=== PATIENT | male | born 1970 | race Caucasian/White ===

== ENCOUNTER 2018-07-23 13:02 | Observation (INO) | payer OTHER ==
[2018-07-23] MEDS ORDERED: SODIUM CHLORIDE 0.9% 1,000 ML IV STA (13:48)
[2018-07-23] MEDS ORDERED: SODIUM CHLORIDE 0.9% 500 ML IV STA (13:48)
[2018-07-23] MEDS ORDERED: DEXAMETHASONE SOD PHOSPHATE 10 MG/ML 1 ML VIAL IV STA ×2 (13:49→17:49)
--- NOTE | 2018-07-23 14:01 | ED ---
General Adult HPI - General Chief complaint: ENT Stated complaint: [facility] Time Seen by Provider: 07/23/18 13:35 Source: patient Mode of arrival: ambulatory Limitations: no limitations - History of Present Illness Initial comments: 47 years old male comes in with the neck trauma, him a he had the neck show during exercises now is complaining about difficulty swallowing he feels back swelling in the anterior neck, denies any shortness of breath no chest pain no abdominal pain no frequency urgency dysuria no symptoms of TIA or CVA no head injury at this point - Related Data Home Medications Medication Instructions Recorded Confirmed No Known Home Medications 07/23/18 07/23/18 Allergies Allergy/AdvReac Type Severity Reaction Status Date / Time No Known Allergies Allergy Verified 07/23/18 13:17 Review of Systems ROS Statement: Those systems with pertinent positive or pertinent negative responses have been documented in the HPI. ROS Other: All systems not noted in ROS Statement are negative. Past Medical History Past Medical History: No Reported History History of Any Multi-Drug Resistant Organisms: None Reported Past Surgical History: Orthopedic Surgery Past Psychological History: No Psychological Hx Reported Smoking Status: Never smoker Past Alcohol Use History: Occasional Past Drug Use History: None Reported General Exam Limitations: no limitations Course Vital Signs 07/23/18 07/23/18 13:05 15:55 Temperature 97.6 F Pulse Rate 87 96 Respiratory 20 18 Rate Blood Pressure 146/95 139/100 O2 Sat by Pulse 98 96 Oximetry 10 days I examine that 1350, noticed mild swelling over the anterior neck inferior to the thyroid cartilage monocytes tenderness emphysema noticed oropharynx looks normal and concerned about trauma to the trachea. I discussed with the Dr. Polo radiologist, he recommended CT soft tissue neck with the IV contrast be better study to evaluate the neck injury. Patient be given Decadron 10 mg IV to reduce the swelling , stat CT neck soft tissue with the IV contrast is ordered, RN is advised not to wait for the creatinine because patient is healthy he denies any kidney disease history. CT neck soft tissue is reviewed findings are discussed with the patient noticed some defect in the cortex of the hyoid bone Dr. Ragsdale is a paged at 1500, waiting to hear back from him. Josue was contacted around 1700 explained the patient she agreed to admit the patient under her service and advised to consult pulmonary medicine. After that Dr. Ordonez calls he agreed to see the patient in consult tomorrow - Reevaluation(s) Reevaluation #1: Plan reassessment CBC, CMP, chest x-ray, INR are unremarkable CK is 429 troponin is normal. KG is a normal sinus ventricular rate is 83 WA interval is 142 QRS duration is 80 QT/QTC 370/39 review of this EKG reveals T-wave inversion in lead [address] elevation or ST depression noticed in the other leads. 07/23/18 14:56 Medical Decision Making - Lab Data Result diagrams: 07/23/18 14:00 07/23/18 14:00 Lab Results 07/23/18 07/23/18 07/23/18 Range/Units 14:00 14:00 14:00 WBC 7.5 (3.8-10.6) k/uL RBC 5.37 (4.30-5.90) m/uL Hgb 16.3 (13.0-17.5) gm/dL Hct 47.9 (39.0-53.0) % MCV 89.3 (80.0-100.0) fL MCH 30.3 (25.0-35.0) pg MCHC 34.0 (31.0-37.0) g/dL RDW 12.9 (11.5-15.5) % Plt Count 269 (150-450) k/uL Neutrophils % 65 % Lymphocytes % 26 % Monocytes % 6 % Eosinophils % 1 % Basophils % 1 % Neutrophils # 4.9 (1.3-7.7) k/uL Lymphocytes # 2.0 (1.0-4.8) k/uL Monocytes # 0.4 (0-1.0) k/uL Eosinophils # 0.1 (0-0.7) k/uL Basophils # 0.1 (0-0.2) k/uL PT (9.0-12.0) sec INR (<1.2) APTT (22.0-30.0) sec Sodium 142 (137-145) mmol/L Potassium 4.3 (3.5-5.1) mmol/L Chloride 106 (98-107) mmol/L Carbon Dioxide 23 (22-30) mmol/L Anion Gap 13 mmol/L BUN 12 (9-20) mg/dL Creatinine 0.90 (0.66-1.25) mg/dL Est GFR (CKD-EPI)AfAm >90 (>60 ml/min/1.73 sqM) Est GFR (CKD-EPI)NonAf >90 (>60 ml/min/1.73 sqM) Glucose 101 H (74-99) mg/dL Calcium 10.1 (8.4-10.2) mg/dL Total Bilirubin 0.6 (0.2-1.3) mg/dL AST 53 (17-59) U/L ALT 101 H (21-72) U/L Alkaline Phosphatase 77 (38-126) U/L Total Creatine Kinase 429 H (55-170) U/L CK-MB (CK-2) 1.7 (0.0-2.4) ng/mL CK-MB (CK-2) Rel Index 0.4 Troponin I <0.012 (0.000-0.034) ng/mL Total Protein 8.3 H (6.3-8.2) g/dL Albumin 5.2 H (3.5-5.0) g/dL 07/23/18 Range/Units 14:00 WBC (3.8-10.6) k/uL RBC (4.30-5.90) m/uL Hgb (13.0-17.5) gm/dL Hct (39.0-53.0) % MCV (80.0-100.0) fL MCH (25.0-35.0) pg MCHC (31.0-37.0) g/dL RDW (11.5-15.5) % Plt Count (150-450) k/uL Neutrophils % % Lymphocytes % % Monocytes % % Eosinophils % % Basophils % % Neutrophils # (1.3-7.7) k/uL Lymphocytes # (1.0-4.8) k/uL Monocytes # (0-1.0) k/uL Eosinophils # (0-0.7) k/uL Basophils # (0-0.2) k/uL PT 10.2 (9.0-12.0) sec INR 1.0 (<1.2) APTT 23.5 (22.0-30.0) sec Sodium (137-145) mmol/L Potassium (3.5-5.1) mmol/L Chloride (98-107) mmol/L Carbon Dioxide (22-30) mmol/L Anion Gap mmol/L BUN (9-20) mg/dL Creatinine (0.66-1.25) mg/dL Est GFR (CKD-EPI)AfAm (>60 ml/min/1.73 sqM) Est GFR (CKD-EPI)NonAf (>60 ml/min/1.73 sqM) Glucose (74-99) mg/dL Calcium (8.4-10.2) mg/dL Total Bilirubin (0.2-1.3) mg/dL AST (17-59) U/L ALT (21-72) U/L Alkaline Phosphatase (38-126) U/L Total Creatine Kinase (55-170) U/L CK-MB (CK-2) (0.0-2.4) ng/mL CK-MB (CK-2) Rel Index Troponin I (0.000-0.034) ng/mL Total Protein (6.3-8.2) g/dL Albumin (3.5-5.0) g/dL Disposition Clinical Impression: Neck pain, Dysphagia Disposition: ADMITTED IP TO THIS [facility] Referrals: Nonstaff,Physician [Primary Care Provider] - 1-2 days
--- NOTE | 2018-07-23 14:14 | XR ---
EXAMINATION TYPE: XR chest 2V DATE OF EXAM: 07/23/2018 COMPARISON: NONE HISTORY: Difficulty breathing TECHNIQUE: Frontal and lateral views of the chest are obtained. FINDINGS: There is no focal air space opacity, pleural effusion, or pneumothorax seen. The cardiac silhouette size is within normal limits. The osseous structures are intact. IMPRESSION: No acute cardiopulmonary process.
[2018-07-23 14:20] LABS: Basophils # (A) 0.1 k/uL (0-0.2); Basophils % (A) 1 %; Eosinophils # (A) 0.1 k/uL (0-0.7); Eosinophils % (A) 1 %; HCT 47.9 % (39.0-53.0); HGB 16.3 gm/dL (13.0-17.5); Lymphocytes % (A) 26 %; MCH 30.3 pg (25.0-35.0); MCV 89.3 fL (80.0-100.0); Mean Platelet Volume 7.3; Monocytes # (A) 0.4 k/uL (0-1.0); Monocytes % (A) 6 %; Neutrophils # (A) 4.9 k/uL (1.3-7.7); Neutrophils % (A) 65 %; Platelet Count 269 k/uL (150-450); RBC 5.37 m/uL (4.30-5.90); RDW 12.9 % (11.5-15.5); WBC 7.5 k/uL (3.8-10.6)
[2018-07-23 14:25] LABS: Partial Thromboplastin Time 23.5 sec (22.0-30.0); Prothrombin Time 10.2 sec (9.0-12.0)
[2018-07-23 14:30] LABS: ALT 101 U/L (21-72); AST 53 U/L (17-59); Albumin 5.2 g/dL (3.5-5.0); Alkaline Phosphatase 77 U/L (38-126); Anion Gap 13 mmol/L; Blood Urea Nitrogen 12 mg/dL (9-20); Calcium 10.1 mg/dL (8.4-10.2); Carbon Dioxide 23 mmol/L (22-30); Chloride 106 mmol/L (98-107); Glucose 101 mg/dL (74-99); Potassium 4.3 mmol/L (3.5-5.1); Sodium 142 mmol/L (137-145); Total Bilirubin 0.6 mg/dL (0.2-1.3); Total Protein 8.3 g/dL (6.3-8.2)
[2018-07-23 14:35] LABS: Creatine Kinase 429 U/L (55-170)
[2018-07-23 14:47] LABS: Creatine Kinase MB 1.7 ng/mL (0.0-2.4); Troponin I <0.012 ng/mL (0.000-0.034)
--- NOTE | 2018-07-23 15:04 | CT ---
EXAMINATION TYPE: CT soft tissue neck w con DATE OF EXAM: 07/23/2018 COMPARISON: HISTORY: practicing a choke hold/felt something pop anterior neck with swelling/difficulty swallowing CT DLP: 653.3 mGycm CONTRAST: CT scan of the neck is performed with IV Contrast, patient injected with 100 mL of Isovue 300. Contrast enhanced CT of the neck was performed from the skull base through the lung apices. AIRWAY: The supraglottic, glottic, and subglottic portions of the airway appear patent and free of mass. SALIVARY GLANDS: The submandibular and parotid glands are free of mass or inflammatory process. THYROID GLAND: No nodules or masses seen. LYMPH NODES: No adenopathy seen greater than 1cm. LUNG APICES: No nodule or mass is seen. OTHER: Paranasal sinuses demonstrate moderate pansinusitis. Polyposis is not excluded. Vascular structures are patent. No significant degenerative change of the cervical spine. No absces s seen. Hyaline cartilage. There is a small area of cortical irregularity involving the hyoid bone to the lef t of midline as seen best on axial image 53 and coronal image 28. Correlate clinically with point ten derness. Thyroid cartilage: Intact. IMPRESSION: 1.There is a small area of cortical irregularity involving the hyoid bone to the left of midline as s een best on axial image 53 and coronal image 28. Correlate clinically with point tenderness. 2. Pansinusitis versus of polyposis.
[2018-07-23] MEDS ORDERED: KETOROLAC 30 MG/ML 1 ML VIAL IVP STA (15:32)
[2018-07-23] MEDS ORDERED: SODIUM CHLORIDE 0.9% 1,000 ML IV ONE (17:32)
[2018-07-23] MEDS ORDERED: MORPHINE SULFATE 2 MG/ML SYRINGE IVP PRN (17:50)
[2018-07-23] MEDS ORDERED: DEXAMETHASONE SOD PHOSPHATE 4 MG/ML 1 ML VIAL IV STA (17:55)
--- NOTE | 2018-07-23 22:11 | P.GSHP ---
History of Present Illness H&P Date: 07/23/18 CHIEF COMPLAINT: Neck injury following choke hold HISTORY OF PRESENT ILLNESS: The patient is a 47-year-old gentleman who was at work demonstrating a neck restraint with him being the recipient. He reported early this morning following the event, he felt a crack within the neck and had trouble with swallowing. He tried to have soup later and had more difficulty with breathing and swallowing hence his presentation to his local ER. With this type of injury, he was transferred to [facility] for higher level of care. CT of the neck demonstrated a questionable anomaly along the neck hence his admission. Patient did respond well to IV steroids. He does report that his symptoms are improved. PAST MEDICAL HISTORY: See list. PAST SURGICAL HISTORY: See list. MEDICATIONS: See list. ALLERGIES: See list. SOCIAL HISTORY: No illicit drug use FAMILY HISTORY: No reports of Crohn's disease or inflammatory bowel disease REVIEW OF ORGAN SYSTEMS: CONSTITUTIONAL: No fevers or chills HEENT: No troubles with vision or hearing. Please see above ENDOCRINE: No reports of thyroid disorders. No diabetes. CARDIOVASCULAR: No heart attack. No chest pain. RESPIRATORY: No shortness of breath or pneumonia. GASTROINTESTINAL: No reports of recent blood in stools. NEURO: No reports of stroke or seizure disorders. PSYCH: No depression or suicidal ideation HEMATOLOGIC: No easy bruising or bleeding LYMPHATIC: The patient denies any lumps and bumps around the neck. GENITOURINARY: Denies any blood in urine or increased urinary frequency. MUSCULOSKELETAL: Denies back pain, stiffness or joint arthritis. SKIN: No skin cancer or rash per PHYSICAL EXAM: VITAL SIGNS: Currently stable. GENERAL: Well-developed in no acute distress. HEENT: Soft. Mild tenderness along the anterior neck. No hematoma. No hematoma within the posterior pharynx. Hears conversational speech. A grossly intact. NECK: Supple. Minimal tenderness with rotation to the right. No crepitus. CHEST: Non-labored respirations and equal bilateral excursions. CARDIOVASCULAR: Regular rate with regular rhythm. Palpable 2+ radial pulses. ABDOMEN: Soft. Nondistended. No peritonitis. Minimal diffuse tenderness MUSCULOSKELETAL: No clubbing, cyanosis or edema. NEUROLOGIC: No focal or lateralizing signs. Cranial nerves II through XII grossly intact. PSYCH: Appropriate affect. Alert and oriented to person, place and time. SKIN: Well perfused. Good skin turgor. IMAGING: Reviewed ASSESSMENT: 1. Neck injury following choke-hold neck restraint PLAN: 1. Steroids IV recommended to control for underlying edema. 2. Overnight hospitalization with close observation for troubles with breathing or troubles with swallowing or hematoma or edema the tongue or neck 3. Liquid diet today. May have pureed diet upon discharge 4. Racemic epinephrine may be of benefit Past Medical History Past Medical History: No Reported History, GERD/Reflux Additional Past Medical History / Comment(s): "occ heartburn" broke both elbows in past(sx) History of Any Multi-Drug Resistant Organisms: None Reported Past Surgical History: Orthopedic Surgery Additional Past Surgical History / Comment(s): joe elbow sx Past Anesthesia/Blood Transfusion Reactions: Motion Sickness Additional Past Anesthesia/Blood Transfusion Reaction / Comment(s): has never recieved any blood transfusions Smoking Status: Never smoker - Past Family History Mother Family Medical History: Cancer Additional Family Medical History / Comment(s): breast cancer Father Family Medical History: Coronary Artery Disease (CAD), Diabetes Mellitus, Renal Disease Additional Family Medical History / Comment(s): esrd, cabg, past cardiac arrest Medications and Allergies Home Medications Medication Instructions Recorded Confirmed Type No Known Home Medications 07/23/18 07/23/18 History Allergies Allergy/AdvReac Type Severity Reaction Status Date / Time No Known Allergies Allergy Verified 07/23/18 13:17 Surgical - Exam Vital Signs Temp Pulse Resp BP Pulse Ox 97.6 F 87 20 146/95 98 07/23/18 13:05 07/23/18 13:05 07/23/18 13:05 07/23/18 13:05 07/23/18 13:05 Results - Labs 07/23/18 14:00 07/23/18 14:00 Abnormal Lab Results - Last 24 Hours (Table) 07/23/18 07/23/18 Range/Units 14:00 14:00 Glucose 101 H (74-99) mg/dL ALT 101 H (21-72) U/L Total Creatine Kinase 429 H (55-170) U/L Total Protein 8.3 H (6.3-8.2) g/dL Albumin 5.2 H (3.5-5.0) g/dL Diabetes panel 07/23/18 Range/Units 14:00 Sodium 142 (137-145) mmol/L Potassium 4.3 (3.5-5.1) mmol/L Chloride 106 (98-107) mmol/L Carbon Dioxide 23 (22-30) mmol/L BUN 12 (9-20) mg/dL Creatinine 0.90 (0.66-1.25) mg/dL Glucose 101 H (74-99) mg/dL Calcium 10.1 (8.4-10.2) mg/dL AST 53 (17-59) U/L ALT 101 H (21-72) U/L Alkaline Phosphatase 77 (38-126) U/L Total Protein 8.3 H (6.3-8.2) g/dL Albumin 5.2 H (3.5-5.0) g/dL Calcium panel 07/23/18 Range/Units 14:00 Calcium 10.1 (8.4-10.2) mg/dL Albumin 5.2 H (3.5-5.0) g/dL Pituitary panel 07/23/18 Range/Units 14:00 Sodium 142 (137-145) mmol/L Potassium 4.3 (3.5-5.1) mmol/L Chloride 106 (98-107) mmol/L Carbon Dioxide 23 (22-30) mmol/L BUN 12 (9-20) mg/dL Creatinine 0.90 (0.66-1.25) mg/dL Glucose 101 H (74-99) mg/dL Calcium 10.1 (8.4-10.2) mg/dL Adrenal panel 07/23/18 Range/Units 14:00 Sodium 142 (137-145) mmol/L Potassium 4.3 (3.5-5.1) mmol/L Chloride 106 (98-107) mmol/L Carbon Dioxide 23 (22-30) mmol/L BUN 12 (9-20) mg/dL Creatinine 0.90 (0.66-1.25) mg/dL Glucose 101 H (74-99) mg/dL Calcium 10.1 (8.4-10.2) mg/dL Total Bilirubin 0.6 (0.2-1.3) mg/dL AST 53 (17-59) U/L ALT 101 H (21-72) U/L Alkaline Phosphatase 77 (38-126) U/L Total Protein 8.3 H (6.3-8.2) g/dL Albumin 5.2 H (3.5-5.0) g/dL - Imaging Additional studies: CT neck reviewed in detail with no evidence of large hematoma of the tongue or neck Assessment and Plan (1) Crush injury, neck Current Visit: Yes Status: Acute Code(s): S17.9XXA - CRUSHING INJURY OF NECK , PART UNSPECIFIED, INITIAL ENCOUNTER SNOMED Code(s): 13657255 (2) Dysphagia Current Visit: Yes Status: Acute Code(s): R13.10 - DYSPHAGIA, UNSPECIFIED SNOMED Code(s): 93642089
[2018-07-23] MEDS ORDERED: RACEPINEPHRINE 2.25% NEB 0.5 ML NEBU INHALATION STA (22:12)
[2018-07-23] MEDS: SODIUM CHLORIDE 0.9% NEBULIZ 3 ML INHALATION SCH (23:04)
[2018-07-23] MEDS: RACEPINEPHRINE 2.25% NEB 0.5 ML NEBU INHALATION SCH (23:07)
[2018-07-24] MEDS: DEXAMETHASONE SOD PHOSPHATE 10 MG/ML 1 ML VIAL IV SCH ×2 (00:47→05:53)
[2018-07-24] MEDS: RACEPINEPHRINE 2.25% NEB 0.5 ML NEBU INHALATION SCH (03:40)
[2018-07-24] MEDS: SODIUM CHLORIDE 0.9% NEBULIZ 3 ML INHALATION SCH (03:40)
--- NOTE | 2018-07-24 07:26 | P.PN ---
Subjective Progress Note Date: 07/24/18 Patient is doing very well. caliber of voice improved. Swallowing improved. May be discharged home. Objective - Vital Signs Vital signs: Vital Signs Temp 98.1 F 07/24/18 00:00 Pulse 68 07/24/18 00:00 Resp 16 07/24/18 04:00 BP 138/62 07/24/18 00:00 Pulse Ox 93 L 07/24/18 00:00 Intake & Output 07/23/18 07/24/18 07/24/18 18:59 06:59 18:59 Weight 110.4 kg Other: Voiding Method Toilet - Labs CBC & Chem 7: 07/23/18 14:00 07/23/18 14:00 Labs: Abnormal Lab Results - Last 24 Hours (Table) 07/23/18 07/23/18 Range/Units 14:00 14:00 Glucose 101 H (74-99) mg/dL ALT 101 H (21-72) U/L Total Creatine Kinase 429 H (55-170) U/L Total Protein 8.3 H (6.3-8.2) g/dL Albumin 5.2 H (3.5-5.0) g/dL Assessment and Plan (1) Crush injury, neck Current Visit: Yes Status: Acute Code(s): S17.9XXA - CRUSHING INJURY OF NECK , PART UNSPECIFIED, INITIAL ENCOUNTER SNOMED Code(s): 11147973 (2) Dysphagia Current Visit: Yes Status: Acute Code(s): R13.10 - DYSPHAGIA, UNSPECIFIED SNOMED Code(s): 39269618
--- NOTE | 2018-07-24 07:27 | P.PN ---
Progress Note - Text Progress Note Date: 07/24/18 To whom it may concern: Young Turner is under my surgical care. He may return to work July 28. Regards, Yamilet Wilkerson MD
[2018-07-24 08:06] VITALS: BP 126/74; PULSE 83; RESP 18; TEMP 97.7
== END 2018-07-24 08:05 | disposition home or self-care (01) ==
LOC: EC 13:02 → 3OBS 17:32
PROVIDERS: ADMIT Surgery Plastic and Reconstructive Surgery; ATTEND Surgery Plastic and Reconstructive Surgery
DX: S17.9XXA Crushing injury of neck, part unspecified, initial encounter (principal); R13.10 Dysphagia, unspecified; K21.9 Gastro-esophageal reflux disease without esophagitis; Z87.81 Personal history of (healed) traumatic fracture; Z80.3 Family history of malignant neoplasm of breast; Z83.3 Family history of diabetes mellitus; Z82.49 Family history of ischemic heart disease and other diseases of the circulatory system; X50.0XXA Overexertion from strenuous movement or load, initial encounter; Y99.0 Civilian activity done for income or pay; Y93.89 Activity, other specified
CPT/HCPCS: 99285 ×2; 96374 ×2; 96375 ×2; 96361 ×5; 96376; 36415; 94640; 93005; 80053; 82550; 82553; 84484; 85025; 85610; 85730; 71046; 70491; G0378 ×2; J1100 ×2; J1885; Q9967